=== PATIENT | male | born 1960 | race Caucasian/White ===

== ENCOUNTER 2016-05-11 16:43 | Emergency (ER) | payer MEDICAID ==
--- NOTE | 2016-05-11 18:08 | EDPHY ---
H & P Stated Complaint: constipation/n/v Time Seen by Provider: 05/11/16 17:15 HPI/ROS: CHIEF COMPLAINT: Constipation HISTORY OF PRESENT ILLNESS: The patient presents to the ED with complaints of constipation. The patient is on narcotics for chronic shoulder pain. He reports he has not had a bowel movement in 3 days. The patient denies fever or vomiting. The patient has not tried any [id number] laxatives. The patient does have a history of chronic intermittent abdominal pain which has been questioned to be secondary to can avoid hyperemesis. The patient denies any typical symptoms of his cyclic vomiting syndrome today. Additionally, the patient has no complaints of dysuria, sore throat or congestion. REVIEW OF SYSTEMS: A comprehensive 10 point review of systems is otherwise negative aside from elements mentioned in the history of present illness. Source: Patient Exam Limitations: No limitations - Personal History Current Tetanus/Diphtheria Vaccine: Yes - Medical/Surgical History Hx Asthma: Yes Hx Chronic Respiratory Disease: No Hx Diabetes: Yes Hx Cardiac Disease: Yes Hx Renal Disease: Yes Hx Cirrhosis: No Hx Alcoholism: No Hx HIV/AIDS: No Hx Splenectomy or Spleen Trauma: No Other PMH: htn, shoulder pain, borderline diabeties, depression, anxiety, idopathic pancreatitis; chronic marijuana use; ARF-2011-On HD x 3-4 days - Social History Smoking Status: Current every day smoker - Physical Exam Exam: General Appearance: Alert, no distress Eyes: Pupils equal and round no pallor or injection ENT, Mouth: Mucous membranes moist Respiratory: There are no retractions, lungs are clear to auscultation Cardiovascular: Regular rate and rhythm Gastrointestinal: Abdomen is soft and nontender, no masses, bowel sounds normal Neurological: A&O, normal motor function, normal sensory exam, normal cranial nerves Skin: Warm and dry, no rashes Musculoskeletal: Neck is supple nontender Extremities: symmetrical, full range of motion Constitutional: Initial Vital Signs Temperature (C) 37.2 C 05/11/16 16:51 Heart Rate 86 05/11/16 16:51 Respiratory Rate 22 H 05/11/16 16:51 Blood Pressure 165/101 H 05/11/16 16:51 O2 Sat (%) 100 05/11/16 16:51 O2 Delivery Mode Room Air Allergies/Adverse Reactions: No Known Allergies Allergy (Verified 05/11/16 16:50) Home Medications: Medication Instructions Recorded Lisinopril 05/11/16 oxyCODONE HCL 05/11/16 Medical Decision Making ED Course/Re-evaluation: The patient was given a enema in the emergency department and was able to have a bowel movement. He will be discharged home with a prescription for magnesium citrate. Additionally the patient is given a prescription for Zofran. He is instructed to return to the ED for markedly worsening pain or other concerns. Differential Diagnosis: Differential diagnosis considered includes constipation, obstruction, obstipation, chronic abdominal pain - Data Points Medications Given: Discontinued Medications Sodium Chloride (Ns) 1,000 mls @ 0 mls/hr IV ONCE ONE PRN Reason: Wide Open Stop: 05/11/16 18:10 Last Admin: 05/11/16 18:34 Dose: Not Given Departure - Departure Disposition: Home, Routine, Self-Care Clinical Impression: Constipation Condition: Good Instructions: Constipation (ED) Additional Instructions: 1. Zofran as needed for nausea. 2. Magnesium citrate as needed for constipation. 3. I recommend taking a stool softener such as Colace while using narcotics. 4. Return to the ED for severe abdominal pain, vomiting or other concerns.
[2016-05-11] MEDS ORDERED: NS 1,000 ML IV ONE (18:09)
[2016-05-11] MEDS ORDERED: MAGNESIUM CITRATE 300 ML BOTTLE ONE (19:46)
[2016-05-11] MEDS ORDERED: MAGNESIUM CITRATE 300 ML BOTTLE PO ONE (20:04)
[2016-05-11] MEDS ORDERED: ONDANSETRON 4MG PREPACK#2 BTL TAKEHOME ONE (20:29)
[2016-05-11] MEDS ORDERED: ONDANSETRON DISINTEGRATING 4 MG TAB PO ONE (20:32)
[2016-05-11 20:40] VITALS: BP 96/61; PULSE 91; RESP 18; TEMP 98.2; O2SAT 96
== END 2016-05-11 20:45 | disposition home or self-care (01) ==
DX: K59.00 Constipation, unspecified (principal); F17.200 Nicotine dependence, unspecified, uncomplicated; I10 Essential (primary) hypertension; J45.909 Unspecified asthma, uncomplicated

== ENCOUNTER 2016-05-25 17:28 | Emergency (ER) | payer MEDICAID ==
[2016-05-25 17:35] VITALS: RESP 20; O2SAT 94
--- NOTE | 2016-05-25 17:52 | EDPHY ---
HPI/HX/ROS/PE/MDM Narrative: CHIEF COMPLAINT: Fall, shoulder pain, rib pain HPI: The patient is a 56 y/o male complaining of left shoulder pain and rib pain secondary to a slip and fall while hiking 2 hours ago. He did not strike his head, neck, or back, and denies other injuries from the fall. No weakness or paresthesias. He has a history of chronic shoulder pain for which he uses narcotics. This is his 12th visit in the last year for various complaints. He was most recently seen 2 weeks ago for constipation secondary to opioid use. REVIEW OF SYSTEMS: Aside from elements discussed in the HPI, a comprehensive 10-point review of systems was reviewed and is negative. PMH: Hypertension, chronic shoulder pain, diabetes, depression, anxiety, idiopathic pancreatitis, ARF SOCIAL HISTORY: Chronic marijuana use PHYSICAL EXAM: General:Patient is alert, in no acute distress. ENT:Eyes are normal to inspection. ENT inspection normal. Neck: Normal inspection. Full range of motion. Respiratory:No respiratory distress. Breath sounds normal bilaterally. Cardiovascular: Regular rate and rhythm. Strong peripheral pulses. Normal cap refill. Abdomen:The abdomen is nontender to palpation. There are no peritoneal signs. There are normal bowel sounds. Back: Normal to inspection. No tenderness to palpation. Skin: Normal color. No rash. Warm and dry. Extremities: Tenderness to left lateral shoulder without step offs or ecchymosis. Normal appearance. Full range of motion. Neuro: Oriented x3. Normal motor function. Normal sensory function. ED Course: Study: Left rib series x-rays Indication: Rib pain, fall Results: Rib x-ray was obtained. The results of the study are 1. No definite acute left rib fracture. 2. Left calcified granulomata. 3. No pneumothorax. The study was read by the radiologist, Dr. Olmos. I viewed the images myself on the PACS system. Study: Left shoulder x-ray Indication: Rib pain, fall Results: Shoulder x-ray was obtained. The results of the study are nothing acute. The study was read by the radiologist, Dr. [place]. I viewed the images myself on the PACS system. I discussed imaging results with the patient. He will be discharged with standard shoulder strain and rib contusion instructions. He's been referred to his PCP for follow up. He agrees with plan. Return precautions given. General Time Seen by Provider: 05/25/16 17:43 Initial Vital Signs: Initial Vital Signs Temperature (C) 36.5 C 05/25/16 17:30 Heart Rate 80 05/25/16 17:30 Respiratory Rate 20 05/25/16 17:30 Blood Pressure 134/86 H 05/25/16 17:30 O2 Sat (%) 94 05/25/16 17:30 O2 Delivery Mode Room Air Allergies/Adverse Reactions: No Known Allergies Allergy (Verified 05/25/16 17:36) Home Medications: Medication Instructions Recorded ASPIRIN 05/25/16 Abilify 05/25/16 Atorvastatin Calcium 05/25/16 Cyclobenzaprine 05/25/16 Diclofenac Sodium 05/25/16 HALOPERIDOL 05/25/16 ISOSORBIDE DINITRATE 05/25/16 Lisinopril 05/25/16 Metformin HCl 05/25/16 Naproxen 05/25/16 Omeprazole 05/25/16 Ondansetron 05/25/16 Oxycodone HCl 05/25/16 Sertraline HCl 05/25/16 traZODone 05/25/16 Departure - Departure Disposition: Home, Routine, Self-Care Clinical Impression: Sprain of left shoulder, Contusion of rib on left side Condition: Good Instructions: Shoulder Sprain (ED), Rib Contusion (ED) Additional Instructions: 1. Rest. Apply ice to sore areas. Take 600mg ibuprofen every 6-8 hours as needed for pain for the next 5-7 days. 2. Follow up with your primary care provider for symptoms not improved over the next week. Referrals: [place],. [Primary Care Provider] - As per Instructions [facility] [Outside] - As per Instructions Report Scribed for: Joshua Brown Report Scribed by: Shireen Stock Date of Report: 05/25/16 Time of Report: 17:53 Physician Review and Approval Statement: Portions of this note were transcribed by an ED scribe. I personally performed the history, physical exam, and medical decision making; and confirm the accuracy of the information in the transcribed note.
--- NOTE | 2016-05-25 18:35 | DX ---
Left Shoulder , 3 Views History: Pain post trauma. Fall hiking. Comparison: August 17, 2015 Findings: There is an old solidly healed fracture deformity of the mid left clavicular shaft associat ed with what appears to be prior orthopedic decompressive surgery of the left rotator cuff. The humer al head is well rounded and normally located. No fracture or dislocation is identified. Incidentally noted are calcifications in the left hilum consistent with old granulomatous disease. Impression: Nothing acute identified.
--- NOTE | 2016-05-25 18:47 | DX ---
Chest and Left Ribs, Three Views May 25, 2016 HISTORY: Left rib pain. FINDINGS: Cardiac silhouette within normal range. No pneumonia, pleural effusion, or pneumothorax. Multiple calcified granulomata in the left hilum. Left ribs demonstrate no definite fracture. No clavicle fracture. No destructive osseous lesions. BB overlies the region of the left 7th/8th rib. IMPRESSIONS 1. No definite acute left rib fracture. 2. Left calcified granulomata. 3. No pneumothorax.
[2016-05-25] MEDS ORDERED: IBUPROFEN 600 MG TAB PO ONE (18:55)
[2016-05-25 19:04] VITALS: BP 128/80; PULSE 82; TEMP 97.5
== END 2016-05-25 19:04 | disposition home or self-care (01) ==
DX: S43.402A Unspecified sprain of left shoulder joint, initial encounter (principal); S20.20XA Contusion of thorax, unspecified, initial encounter; I10 Essential (primary) hypertension; E11.9 Type 2 diabetes mellitus without complications; W01.0XXA Fall on same level from slipping, tripping and stumbling without subsequent striking against object, initial encounter; Y93.01 Activity, walking, marching and hiking

== ENCOUNTER 2016-06-13 07:34 | Emergency (ER) | payer MEDICAID ==
[2016-06-13] MEDS ORDERED: PROMETHAZINE HCL 25 MG/ML INJ IVP ONE (08:14)
[2016-06-13] MEDS ORDERED: NS 1,000 ML IV ONE (08:14)
[2016-06-13] MEDS ORDERED: HALOPERIDOL LACT 5 MG/ML INJ IVP ONE (08:15)
--- NOTE | 2016-06-13 08:18 | EDPHY ---
H & P Stated Complaint: cyclical vomiting Time Seen by Provider: 06/13/16 08:09 HPI/ROS: CHIEF COMPLAINT: Cyclic vomiting HISTORY OF PRESENT ILLNESS: The patient is a 56-year-old man with a history of cyclic vomiting, cannabis hyperemesis syndrome, hypertension and diabetes as well as chronic shoulder pain and opiate dependency who comes to the emergency department states that he began throwing up at midnight. He states that his stomach is "being torn up". He states that this is exactly similar to previous episodes of cyclic vomiting. He has not had a fever. He has not had diarrhea. No history of abdominal surgeries. 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 REVIEW OF SYSTEMS: Constitutional: denies: chills, fever, recent illness, recent injury EENTM: denies: blurred vision, double vision, nose congestion Respiratory: denies: cough, shortness of breath Cardiac: denies: chest pain, irregular heart rate, lightheadedness, palpitations Gastrointestinal/Abdominal: See HPI Genitourinary: denies: dysuria, frequency, hematuria, pain Musculoskeletal: denies: joint pain, muscle pain Skin: denies: lesions, rash, jaundice, bruising Neurological: denies: headache, numbness, paresthesia, tingling, dizziness, weakness Hematologic/Lymphatic: denies: blood clots, easy bleeding, easy bruising Immunologic/allergic: denies: HIV/AIDS, transplant EXAM: GENERAL: Well-appearing, well-nourished and in no acute distress. HEAD: Atraumatic, normocephalic. EYES: Pupils equal round and reactive to light, extraocular movements intact, sclera anicteric, conjunctiva are normal. ENT: TMs normal, nares patent, oropharynx clear without exudates. Moist mucous membranes. NECK: Normal range of motion, supple without lymphadenopathy or JVD. LUNGS: Breath sounds clear to auscultation bilaterally and equal. No wheezes rales or rhonchi. HEART: Regular rate and rhythm without murmurs, rubs or gallops. ABDOMEN: Soft, nontender, normoactive bowel sounds. No guarding, no rebound. No masses appreciated. BACK: No CVA tenderness, no spinal tenderness, step-offs or deformities EXTREMITIES: Normal range of motion, no pitting or edema. No clubbing or cyanosis. NEUROLOGICAL: Cranial nerves II through XII grossly intact. Normal speech, normal gait. 5/5 strength, normal movement in all extremities, normal sensation PSYCH: Normal mood, normal affect. SKIN: Warm, dry, normal turgor, no visible rashes or lesions. Source: Patient, Old records Exam Limitations: No limitations - Personal History Current Tetanus/Diphtheria Vaccine: Unsure - Medical/Surgical History Hx Asthma: Yes Hx Chronic Respiratory Disease: No Hx Diabetes: Yes Hx Cardiac Disease: Yes Hx Renal Disease: Yes Hx Cirrhosis: No Hx Alcoholism: No Hx HIV/AIDS: No Hx Splenectomy or Spleen Trauma: No Other PMH: htn, shoulder pain, borderline diabeties, depression, anxiety, idopathic pancreatitis; chronic marijuana use; -2011-On HD x 3-4 days - Family History Significant Family History: No pertinent family hx - Social History Smoking Status: Former smoker Alcohol Use: Occasionally Drug Use: Marijuana Constitutional: Initial Vital Signs Temperature (C) 36.7 C 06/13/16 07:35 Heart Rate 73 06/13/16 07:35 Respiratory Rate 24 H 06/13/16 07:35 Blood Pressure 156/90 H 06/13/16 07:35 O2 Sat (%) 100 06/13/16 07:35 O2 Delivery Mode Room Air Allergies/Adverse Reactions: No Known Allergies Allergy (Verified 06/13/16 07:35) Home Medications: Medication Instructions Recorded ASPIRIN 05/25/16 Abilify 05/25/16 Atorvastatin Calcium 05/25/16 Cyclobenzaprine 05/25/16 Diclofenac Sodium 05/25/16 HALOPERIDOL 05/25/16 ISOSORBIDE DINITRATE 05/25/16 Lisinopril 05/25/16 Metformin HCl 05/25/16 Naproxen 05/25/16 Omeprazole 05/25/16 Ondansetron 05/25/16 Oxycodone HCl 05/25/16 Sertraline HCl 05/25/16 traZODone 05/25/16 Promethazine HCl [Phenergan 25mg 25 mg MA Q4-6PRN PRN #10 suppr 06/13/16 supp (RX)] Medical Decision Making ED Course/Re-evaluation: 9:20 a.m. the patient is feeling much better. He is sleeping and requested lights off. Abdominal exam remains benign. 10:00 a.m. the patient is feeling much better and is asking to go home. I will prescribe him Phenergan to take if needed. He understands and agrees with this plan. Additional verbal discharge instructions given. Differential Diagnosis: Partial list of the Differential diagnosis considered include but were not limited to; cyclic vomiting, cannabis hyperemesis, gastroenteritis, dehydration and although unlikely based on the history and physical exam, I also considered appendicitis, biliary disease, obstruction, ischemia. I discussed these differential diagnoses and the plan with the patient as well as the usual and expected course. The patient understands that the diagnosis is provisional and that in medicine we are not always correct and that further workup is often warranted. Usual and customary warnings were given. All of the patient's questions were answered. The patient was instructed to return to the emergency department should the symptoms at all worsen or return, otherwise to followup with the physician as we discussed. - Data Points Medications Given: Discontinued Medications Haloperidol Lactate (Haldol Injection) 5 mg IVP EDNOW ONE Stop: 06/13/16 08:16 Last Admin: 06/13/16 08:27 Dose: 5 mg Sodium Chloride (Ns) 1,000 mls @ 0 mls/hr IV ONCE ONE PRN Reason: Wide Open Stop: 06/13/16 08:15 Last Admin: 06/13/16 08:20 Dose: 1,000 mls Promethazine HCl (Phenergan) 12.5 mg IVP EDNOW ONE Stop: 06/13/16 08:15 Last Admin: 06/13/16 08:27 Dose: 12.5 mg Departure - Departure Disposition: Home, Routine, Self-Care Clinical Impression: Nausea & vomiting Qualifiers: Vomiting type: cyclical vomiting Vomiting Intractability: non-intractable Qualified Code(s): G43.A0 - Cyclical vomiting, not intractable Condition: Fair Instructions: Acute Nausea and Vomiting (ED) Referrals: NONE *PRIMARY CARE P,. [Primary Care Provider] - As per Instructions Rupal Hinkle MD [Medical Doctor] - As per Instructions Prescriptions: Promethazine HCl [Phenergan 25mg supp (RX)] 25 mg MA Q4-6PRN PRN #10 suppr PRN Reason: Headache
[2016-06-13 10:07] VITALS: BP 148/67; PULSE 71; RESP 20; TEMP 98.6; O2SAT 94
== END 2016-06-13 10:11 | disposition home or self-care (01) ==
DX: G43.A0 Cyclical vomiting, in migraine, not intractable (principal); J45.909 Unspecified asthma, uncomplicated; I10 Essential (primary) hypertension; Z79.82 Long term (current) use of aspirin; Z87.891 Personal history of nicotine dependence
CPT/HCPCS: 96374; J2550

== ENCOUNTER 2016-07-14 05:45 | Emergency (ER) | payer MEDICAID ==
[2016-07-14 05:54] VITALS: RESP 16
[2016-07-14] MEDS ORDERED: HALOPERIDOL LACT 5 MG/ML INJ ONE (06:04)
[2016-07-14] MEDS ORDERED: HALOPERIDOL LACT 5 MG/ML INJ IVP ONE ×2 (06:10→06:54)
[2016-07-14] MEDS ORDERED: NS 1,000 ML IV ONE (06:10)
[2016-07-14 06:43] LABS: % IMMATURE GRANULYOCYTES 0.4 % (0.0-1.1); ABSOLUTE IMMATURE GRANULOCYTES 0.05 10^3/uL (0.00-0.10); ADD DIFF? NO; ADD MORPH? NO; ADD SCAN? NO; ATYPICAL LYMPHOCYTE FLAG 10 (0-99); FRAGMENT RBC FLAG 0 (0-99); HEMATOCRIT 50.9 % (40.0-51.0); HEMOGLOBIN 17.7 g/dL (13.7-17.5); LEFT SHIFT FLG 0 (0-99); LIPEMIA HEMOLYSIS FLAG 90 (0-99); MEAN CELL HEMOGLOBIN 30.6 pg (27.9-34.1); MEAN CELL HEMOGLOBIN CONCENTR. 34.8 g/dL (32.4-36.7); MEAN CELL VOLUME 88.1 fL (81.5-99.8); MEAN PLATELET VOLUME 10.1 fL (8.7-11.7); PLATELET CLUMPS FLAG 20 (0-99); PLATELET COUNT 263 10^3/uL (150-400); RED BLOOD CELL COUNT 5.78 10^6/uL (4.40-6.38); RED CELL DISTRIBUTION WIDTH 12.6 % (11.5-15.2)
[2016-07-14 06:48] LABS: ALANINE AMINOTRANSFERASE 35 IU/L (21-72); ALBUMIN 5.3 g/dL (3.5-5.0); ALKALINE PHOSPHATASE 96 IU/L (38-126); ANION GAP 16 mEq/L (8-16); ASPARTATE AMINOTRANSFERASE 31 IU/L (17-59); BILIRUBIN,TOTAL 1.1 mg/dL (0.1-1.4); BILIRUBIN-CONJUGATED 0.4 mg/dL (0.0-0.5); BILIRUBIN-UNCONJUGATED 0.7 mg/dL (0.0-1.1); CALCIUM 10.2 mg/dL (8.5-10.4); CARBON DIOXIDE 26 mEq/l (22-31); CHLORIDE 100 mEq/L (97-110); CREATININE 1.1 mg/dL (0.7-1.3); GLOMERULAR FILTRATION RATE > 60; GLUCOSE 105 mg/dL (70-100); POTASSIUM 3.8 mEq/L (3.5-5.2); SODIUM 142 mEq/L (134-144); TOTAL PROTEIN 8.9 g/dL (6.3-8.2)
[2016-07-14] MEDS ORDERED: PROMETHAZINE HCL 25 MG TAB PO ONE (06:54)
--- NOTE | 2016-07-14 07:25 | EDPHY ---
H & P Stated Complaint: n/v, abd pain Time Seen by Provider: 07/14/16 06:14 HPI/ROS: HPI The patient presents with abdominal pain, nausea and vomiting which began last night at approximately 8:00 p.m.. He has vomited 3 times, it is been nonbloody and nonbilious. This is associated with diffuse and crampy abdominal pain which is somewhat achy in nature. This has been intermittent. He has not tried to eat or drink anything since the pain started. He has not taken any medications to treat his symptoms. He says he has not used marijuana in the last 2 weeks. He says this feels similar to his prior episodes, was last in the emergency room about 1 month ago and improved with Haldol and Phenergan. REVIEW OF SYSTEMS Constitutional: No fever, no chills. Eyes: No discharge. ENT: No sore throat. Cardiovascular: No chest pain, no palpitations. Respiratory: No cough, no shortness of breath. Gastrointestinal: See HPI Genitourinary: No hematuria. Musculoskeletal: No back pain. Skin: No rashes. Neurological: No headache. PMHx: Cyclic vomiting syndrome, history of canabanoid hyperemesis syndrome, followed by Dr. Maki of [facility] Hx: History of marijuana use PHYSICAL General Appearance: Alert, somewhat uncomfortable appearing Eyes: Pupils equal and round no pallor or injection ENT, Mouth: Mucous membranes dry Respiratory: There are no retractions, lungs are clear to auscultation Cardiovascular: Regular rate and rhythm Gastrointestinal: Abdomen is soft and non-tender, no masses, bowel sounds normal Neurological: A&O, moves all extremities Skin: Warm and dry, no rashes Musculoskeletal: Neck is supple non tender Extremities: symmetrical, full range of motion Psychiatric: Patient is oriented X 3, there is no agitation Source: Patient Exam Limitations: No limitations - Personal History Current Tetanus/Diphtheria Vaccine: Yes Current Tetanus Diphtheria and Acellular Pertussis (TDAP): Yes - Medical/Surgical History Hx Asthma: Yes Hx Chronic Respiratory Disease: No Hx Diabetes: Yes Hx Cardiac Disease: Yes Hx Renal Disease: Yes Hx Cirrhosis: No Hx Alcoholism: No Hx HIV/AIDS: No Hx Splenectomy or Spleen Trauma: No Other PMH: htn, shoulder pain, borderline diabeties, depression, anxiety, idopathic pancreatitis; chronic marijuana use; ARF-2012-On HD x 3-4 days - Social History Smoking Status: Former smoker Constitutional: Initial Vital Signs Temperature (C) 36.7 C 07/14/16 05:52 Heart Rate 75 07/14/16 05:52 Respiratory Rate 16 07/14/16 05:52 Blood Pressure 161/117 H 07/14/16 05:52 O2 Sat (%) 97 07/14/16 05:52 O2 Delivery Mode Room Air Allergies/Adverse Reactions: No Known Allergies Allergy (Verified 07/14/16 05:49) Home Medications: Medication Instructions Recorded ASPIRIN 05/25/16 Abilify 05/25/16 Atorvastatin Calcium 05/25/16 HALOPERIDOL 05/25/16 Lisinopril 05/25/16 Ondansetron 05/25/16 Oxycodone HCl 05/25/16 Sertraline HCl 05/25/16 traZODone 05/25/16 Promethazine HCl [Phenergan 25mg 25 mg AR Q4-6PRN PRN #10 suppr 06/13/16 supp (RX)] Medical Decision Making ED Course/Re-evaluation: 7:20 a.m.- The patient was re-evaluated by me. His vomiting seems to have improved, however he continues to complain of abdominal pain. His abdominal exam was repeated and is benign. I plan to write for additional medication, Toradol and famotidine will be administered. I anticipate that he will improve and be suitable for discharge at this time. The case will be signed out to Dr. Oakes in the case that the patient requires any additional care. Differential Diagnosis: This is a 56-year-old man with history of cyclic vomiting syndrome verses hyperemesis syndrome related to marijuana use who presents with acute onset of nausea, vomiting, abdominal pain, feeling typical of his prior episodes. Differential diagnosis includes cyclic vomiting, gastritis, gastroenteritis, hyperemesis syndrome. - Data Points Laboratory Results: Laboratory Results 07/14/16 06:03 07/14/16 06:03 07/14/16 07/14/16 06:03 06:03 WBC 12.09 10^3/uL H 10^3/uL (3.80-9.50) RBC 5.78 10^6/uL 10^6/uL (4.40-6.38) Hgb 17.7 g/dL H g/dL (13.7-17.5) Hct 50.9 % % (40.0-51.0) MCV 88.1 fL fL (81.5-99.8) MCH 30.6 pg pg (27.9-34.1) MCHC 34.8 g/dL g/dL (32.4-36.7) RDW 12.6 % % (11.5-15.2) Plt Count 263 10^3/uL 10^3/uL (150-400) MPV 10.1 fL fL (8.7-11.7) Neut % (Auto) 64.1 % % (39.3-74.2) Lymph % (Auto) 27.7 % % (15.0-45.0) [place] % (Auto) 6.9 % % (4.5-13.0) Eos % (Auto) 0.7 % % (0.6-7.6) Baso % (Auto) 0.2 % L % (0.3-1.7) Nucleat RBC Rel Count 0.0 % % (0.0-0.2) Absolute Neuts (auto) 7.75 10^3/uL H 10^3/uL (1.70-6.50) Absolute Lymphs (auto) 3.35 10^3/uL H 10^3/uL (1.00-3.00) Absolute Monos (auto) 0.83 10^3/uL H 10^3/uL (0.30-0.80) Absolute Eos (auto) 0.08 10^3/uL 10^3/uL (0.03-0.40) Absolute Basos (auto) 0.03 10^3/uL 10^3/uL (0.02-0.10) Absolute Nucleated RBC 0.00 10^3/uL 10^3/uL (0-0.01) Immature Gran % 0.4 % % (0.0-1.1) Immature Gran # 0.05 10^3/uL 10^3/uL (0.00-0.10) Sodium 142 mEq/L mEq/L (134-144) Potassium 3.8 mEq/L mEq/L (3.5-5.2) Chloride 100 mEq/L mEq/L (97-110) Carbon Dioxide 26 mEq/l mEq/l (22-31) Anion Gap 16 mEq/L mEq/L (8-16) BUN 15 mg/dL mg/dL (7-23) Creatinine 1.1 mg/dL mg/dL (0.7-1.3) Estimated GFR > 60 Glucose 105 mg/dL H mg/dL (70-100) Calcium 10.2 mg/dL mg/dL (8.5-10.4) Total Bilirubin 1.1 mg/dL mg/dL (0.1-1.4) Conjugated Bilirubin 0.4 mg/dL mg/dL (0.0-0.5) Unconjugated Bilirubin 0.7 mg/dL mg/dL (0.0-1.1) AST 31 IU/L IU/L (17-59) ALT 35 IU/L IU/L (21-72) Alkaline Phosphatase 96 IU/L IU/L (38-126) Total Protein 8.9 g/dL H g/dL (6.3-8.2) Albumin 5.3 g/dL H g/dL (3.5-5.0) Lipase 200.0 IU/L IU/L (23-300) Medications Given: Discontinued Medications Haloperidol Lactate (Haldol Injection) 2.5 mg IVP EDNOW ONE Stop: 07/14/16 06:11 Last Admin: 07/14/16 06:11 Dose: 2.5 mg Sodium Chloride (Ns) 1,000 mls @ 0 mls/hr IV ONCE ONE PRN Reason: Wide Open Stop: 07/14/16 06:11 Last Admin: 07/14/16 06:12 Dose: 1,000 mls Departure - Departure Disposition: Home, Routine, Self-Care Clinical Impression: Nausea & vomiting Qualifiers: Vomiting type: unspecified Vomiting Intractability: non-intractable Qualified Code(s): R11.2 - Nausea with vomiting, unspecified Abdominal pain Qualifiers: Abdominal location: generalized Qualified Code(s): R10.84 - Generalized abdominal pain Condition: Good Instructions: Acute Nausea and Vomiting (ED) Additional Instructions: Please follow-up with your regular doctor in the next few days. You should return to the emergency room if your pain is worse. Referrals: KALI OBREGON [Other] - As per Instructions
[2016-07-14] MEDS ORDERED: FAMOTIDINE 20 MG/NACL 50 ML IV ONE (07:26)
[2016-07-14] MEDS ORDERED: KETOROLAC 30 MG/1 ML SDV IVP ONE (07:26)
[2016-07-14 09:12] VITALS: BP 152/96; PULSE 88; TEMP 210; O2SAT 95
== END 2016-07-14 09:07 | disposition home or self-care (01) ==
DX: R11.2 Nausea with vomiting, unspecified (principal); R10.84 Generalized abdominal pain; I10 Essential (primary) hypertension; Z87.891 Personal history of nicotine dependence; Z79.82 Long term (current) use of aspirin
CPT/HCPCS: 96365; J1885

== ENCOUNTER 2016-09-14 06:55 | Emergency (ER) | payer MEDICAID ==
--- NOTE | 2016-09-14 07:02 | EDPHY ---
H & P Time Seen by Provider: 09/14/16 07:01 HPI/ROS: CHIEF COMPLAINT: Intractable vomiting HISTORY OF PRESENT ILLNESS: The patient presents to the ED with complaints of generalized abdominal pain and intractable vomiting. The patient has a history of cyclic vomiting syndrome. The patient states that he feels this is consistent with his typical acute exacerbation of this disease. The patient denies any hematemesis or melena. The patient denies fever. The patient did have surgery performed on his left shoulder approximately a week ago. The patient complains of moderate to severe symptoms. The patient is requesting an IV for rehydration. The patient has remote history of renal failure requiring hemodialysis in 2014. He has been off of dialysis since that time. The patient also has a history of idiopathic pancreatitis. REVIEW OF SYSTEMS: A comprehensive 10 point review of systems is otherwise negative aside from elements mentioned in the history of present illness. Source: Patient Exam Limitations: No limitations - Medical/Surgical History Hx Asthma: Yes Hx Chronic Respiratory Disease: No Hx Diabetes: Yes Hx Cardiac Disease: Yes Hx Renal Disease: Yes Hx Cirrhosis: No Hx Alcoholism: No Hx HIV/AIDS: No Hx Splenectomy or Spleen Trauma: No Other PMH: htn, shoulder pain, borderline diabeties, depression, anxiety, idopathic pancreatitis; chronic marijuana use; ARF-2011-On HD x 3-4 days - Social History Smoking Status: Former smoker - Physical Exam Exam: General Appearance: Alert, retching, moderate distress from vomiting Eyes: Pupils equal and round no pallor or injection ENT, Mouth: Mucous membranes moist Respiratory: There are no retractions, lungs are clear to auscultation Cardiovascular: Regular rate and rhythm Gastrointestinal: Mild generalized tenderness to palpation, no evidence of acute abdomen Neurological: A&O, normal motor function, normal sensory exam, normal cranial nerves Skin: Warm and dry, no rashes Musculoskeletal: Neck is supple nontender Extremities: symmetrical, full range of motion Constitutional: Initial Vital Signs Temperature (C) 36.9 C 09/14/16 06:59 Heart Rate 78 09/14/16 06:59 Respiratory Rate 18 09/14/16 06:59 Blood Pressure 173/100 H 09/14/16 06:59 O2 Sat (%) 99 09/14/16 06:59 O2 Delivery Mode Room Air Allergies/Adverse Reactions: No Known Allergies Allergy (Verified 09/14/16 07:03) Home Medications: Medication Instructions Recorded ASPIRIN 05/25/16 Abilify 05/25/16 Atorvastatin Calcium 05/25/16 HALOPERIDOL 05/25/16 Lisinopril 05/25/16 Ondansetron 05/25/16 Oxycodone HCl 05/25/16 Sertraline HCl 05/25/16 traZODone 05/25/16 Promethazine HCl [Phenergan 25mg 25 mg AZ Q4-6PRN PRN #10 suppr 06/13/16 supp (RX)] Medical Decision Making ED Course/Re-evaluation: I reviewed the patient's past medical records. The patient has a history of likely can avoid induced hyperemesis presents to the ED with a typical exacerbation of that disease. The patient did receive IV Haldol in the emergency department. The patient's laboratory studies demonstrate no evidence of a critical anemia, pancreatitis or metabolic derangement. The patient received an additional 1 L of normal saline for IV fluid rehydration in the setting of his vomiting. The patient was reassessed at 9:45 a.m. and is ambulatory. His vomiting has resolved. The patient will be discharged from the emergency department. Differential Diagnosis: Differential diagnosis considered includes cyclic vomiting syndrome, acute pancreatitis, hepatitis, dehydration, metabolic abnormality - Data Points Laboratory Results: Laboratory Results 09/14/16 07:20 09/14/16 07:20 09/14/16 09/14/16 09/14/16 07:20 07:20 07:17 WBC 12.09 10^3/uL H 10^3/uL (3.80-9.50) RBC 5.01 10^6/uL 10^6/uL (4.40-6.38) Hgb 15.5 g/dL g/dL (13.7-17.5) POC Hgb 15.3 gm/dL gm/dL (14.5-17.3) Hct 44.0 % % (40.0-51.0) POC Hct 45 % % (42.8-50.6) MCV 87.8 fL fL (81.5-99.8) MCH 30.9 pg pg (27.9-34.1) MCHC 35.2 g/dL g/dL (32.4-36.7) RDW 14.0 % % (11.5-15.2) Plt Count 250 10^3/uL 10^3/uL (150-400) MPV 10.0 fL fL (8.7-11.7) Neut % (Auto) 70.6 % % (39.3-74.2) Lymph % (Auto) 20.5 % % (15.0-45.0) [place] % (Auto) 5.8 % % (4.5-13.0) Eos % (Auto) 2.3 % % (0.6-7.6) Baso % (Auto) 0.2 % L % (0.3-1.7) Nucleat RBC Rel Count 0.0 % % (0.0-0.2) Absolute Neuts (auto) 8.53 10^3/uL H 10^3/uL (1.70-6.50) Absolute Lymphs (auto) 2.48 10^3/uL 10^3/uL (1.00-3.00) Absolute Monos (auto) 0.70 10^3/uL 10^3/uL (0.30-0.80) Absolute Eos (auto) 0.28 10^3/uL 10^3/uL (0.03-0.40) Absolute Basos (auto) 0.03 10^3/uL 10^3/uL (0.02-0.10) Absolute Nucleated RBC 0.00 10^3/uL 10^3/uL (0-0.01) Immature Gran % 0.6 % % (0.0-1.1) Immature Gran # 0.07 10^3/uL 10^3/uL (0.00-0.10) POC Sodium 142 mEq/L mEq/L (134-144) Sodium 140 mEq/L mEq/L (134-144) POC Potassium 3.2 mEq/L L mEq/L (3.3-5.0) Potassium 3.5 mEq/L mEq/L (3.5-5.2) POC Chloride 102 mEq/L mEq/L (96-108) Chloride 104 mEq/L mEq/L (97-110) Carbon Dioxide 24 mEq/l mEq/l (22-31) Anion Gap 12 mEq/L mEq/L (8-16) POC BUN 7 mg/dL mg/dL (7-23) BUN 9 mg/dL mg/dL (7-23) Creatinine 1.1 mg/dL mg/dL (0.7-1.3) POC Creatinine 1.2 mg/dL mg/dL (0.8-1.5) Estimated GFR > 60 Glucose 102 mg/dL H mg/dL (70-100) POC Glucose 105 mg/dL H mg/dL (70-100) Calcium 9.8 mg/dL mg/dL (8.5-10.4) Total Bilirubin 1.0 mg/dL mg/dL (0.1-1.4) Conjugated Bilirubin 0.4 mg/dL mg/dL (0.0-0.5) Unconjugated Bilirubin 0.6 mg/dL mg/dL (0.0-1.1) AST 23 IU/L IU/L (17-59) ALT 21 IU/L IU/L (21-72) Alkaline Phosphatase 93 IU/L IU/L (38-126) Total Protein 7.6 g/dL g/dL (6.3-8.2) Albumin 5.0 g/dL g/dL (3.5-5.0) Lipase 145.0 IU/L IU/L (23-300) Medications Given: Discontinued Medications Haloperidol Lactate (Haldol Injection) 2.5 mg IVP EDNOW ONE Stop: 09/14/16 07:20 Last Admin: 09/14/16 07:20 Dose: 2.5 mg Sodium Chloride (Ns) 1,000 mls @ 0 mls/hr IV ONCE ONE PRN Reason: Wide Open Stop: 09/14/16 07:20 Last Admin: 09/14/16 07:20 Dose: 1,000 mls Point of Care Test Results: 09/14/16 07:17 POC Sodium 142 POC Potassium 3.2 L POC Chloride 102 POC BUN 7 POC Creatinine 1.2 POC Glucose 105 H Departure - Departure Disposition: Home, Routine, Self-Care Clinical Impression: Cyclic vomiting syndrome Qualifiers: Vomiting Intractability: non-intractable Nausea presence: with nausea Qualified Code(s): G43.A0 - Cyclical vomiting, not intractable Condition: Good Instructions: Acute Nausea and Vomiting (ED) Additional Instructions: 1. Please return to the emergency department for worsening symptoms or other concerns. 2. Zofran as needed for nausea. 3. Please follow up with your primary care provider as needed. Referrals: KALI OBREGON [Other] - As per Instructions
[2016-09-14 07:03] VITALS: BP 173/100; RESP 18
[2016-09-14] MEDS ORDERED: NS 1,000 ML IV ONE (07:19)
[2016-09-14] MEDS ORDERED: HALOPERIDOL LACT 5 MG/ML INJ IVP ONE (07:19)
[2016-09-14 07:27] LABS: % IMMATURE GRANULYOCYTES 0.6 % (0.0-1.1); ABSOLUTE IMMATURE GRANULOCYTES 0.07 10^3/uL (0.00-0.10); ADD DIFF? NO; ADD MORPH? NO; ADD SCAN? NO; ATYPICAL LYMPHOCYTE FLAG 10 (0-99); FRAGMENT RBC FLAG 0 (0-99); HEMOGLOBIN 15.5 g/dL (13.7-17.5); LEFT SHIFT FLG 0 (0-99); LIPEMIA HEMOLYSIS FLAG 90 (0-99); MEAN CELL HEMOGLOBIN 30.9 pg (27.9-34.1); MEAN CELL HEMOGLOBIN CONCENTR. 35.2 g/dL (32.4-36.7); MEAN CELL VOLUME 87.8 fL (81.5-99.8); PLATELET CLUMPS FLAG 0 (0-99); PLATELET COUNT 250 10^3/uL (150-400); RED BLOOD CELL COUNT 5.01 10^6/uL (4.40-6.38)
[2016-09-14 07:58] LABS: ALANINE AMINOTRANSFERASE 21 IU/L (21-72); ALKALINE PHOSPHATASE 93 IU/L (38-126); ANION GAP 12 mEq/L (8-16); ASPARTATE AMINOTRANSFERASE 23 IU/L (17-59); BILIRUBIN-CONJUGATED 0.4 mg/dL (0.0-0.5); BILIRUBIN-UNCONJUGATED 0.6 mg/dL (0.0-1.1); CALCIUM 9.8 mg/dL (8.5-10.4); CARBON DIOXIDE 24 mEq/l (22-31); CHLORIDE 104 mEq/L (97-110); CREATININE 1.1 mg/dL (0.7-1.3); GLOMERULAR FILTRATION RATE > 60; GLUCOSE 102 mg/dL (70-100); POTASSIUM 3.5 mEq/L (3.5-5.2); SODIUM 140 mEq/L (134-144); TOTAL PROTEIN 7.6 g/dL (6.3-8.2)
[2016-09-14 10:02] VITALS: PULSE 79; TEMP 98.6; O2SAT 95
== END 2016-09-14 10:01 | disposition home or self-care (01) ==
DX: G43.A0 Cyclical vomiting, in migraine, not intractable (principal); J45.909 Unspecified asthma, uncomplicated; I10 Essential (primary) hypertension; Z79.82 Long term (current) use of aspirin; Z87.891 Personal history of nicotine dependence
CPT/HCPCS: 82947-QW; 96374

== ENCOUNTER 2016-12-25 03:51 | Emergency (ER) | payer MEDICAID ==
--- NOTE | 2016-12-25 04:05 | EDPHY ---
H & P Stated Complaint: c/o sweaty, N/V, since 1999. HPI/ROS: HPI CHIEF COMPLAINT: Abdominal pain, nausea, vomiting HISTORY OF PRESENT ILLNESS: This patient 56-year-old male, significant past medical history for pancreatitis, hypertension diabetes, he presents emergency room with nausea vomiting and abdominal pain. Patient tells me he has epigastric abdominal pain that goes across his abdomen. No chest pain or shortness of breath. States this started around 8:00 p.m.. Has been persistent all night. Currently 02/05. Burning. Associated nausea. He states he vomited multiple times prior to arrival. He states this feels similar to his previous pancreatitis. Denies hematemesis or diarrhea. Denies lower abdominal pain. Past Medical History: Hypertension, diabetes, chronic pancreatitis, nausea vomiting Past Surgical History: No recent surgery Social History: Denies use of drugs or alcohol. Homeless, lives additional. Family History: Noncontributory ROS REVIEW OF SYSTEMS: A comprehensive 10 point review of systems is otherwise negative aside from elements mentioned in the history of present illness. Exam Constitutional triage nursing summary reviewed, vital signs reviewed, awake/ alert. Eyes normal conjunctivae and sclera, EOMI, PERRLA. HENT normal inspection, atraumatic, moist mucus membranes, no epistaxis, neck supple/ no meningismus, no raccoon eyes. Respiratory clear to auscultation bilaterally, normal breath sounds, no respiratory distress, no wheezing. Cardiovascular rate normal, regular rhythm, no murmur, no edema, distal pulses normal. Gastrointestinal mild tender palpation epigastric region, no rebound, no guarding, normal bowel sounds, no distension, no pulsatile mass. Genitourinary no CVA tenderness. Musculoskeletal no midline vertebral tenderness, full range of motion, no calf swelling, no tenderness of extremities, no meningismus, good pulses, neurovascularly intact. Skin pink, warm, & dry, no rash, skin atraumatic. Neurologic awake, alert and oriented x 3, AAOx3, moves all 4 extremities equally, motor intact, sensory intact, CN II-XII intact, normal cerebellar, normal vision, normal speech. Psychiatric normal mood/affect. Heme/Lymph/Immune no lymphadenopathy. Differential diagnosis includes but is not limited to and in no particular order : Bowel obstruction, appendicitis, gallbladder disease, diverticulitis, colitis , enteritis, perforated viscus, gastritis, GERD, esophagitis, urinary tract infection, pyelonephritis, kidney stones Medical Decision Making: Plan for this patient IV establishment with IV fluid bolus 1 L normal saline, IV Zofran nausea, IV Dilaudid 0.5 mg for pain control. Check blood, including lipase. CT scan abdomen pelvis with IV contrast to help delineate his acute abdominal pain. EKG and troponin. Re-evaluation: 0519AM: CT scan of the abdomen pelvis with IV contrast has been reviewed. Negative for acute inflammatory process no free air no free fluid. Nothing to explain his severe epigastric abdominal pain. 0614AM: Reassessment at this time. He removed his own IV. He is ambulatory in the room. He is not vomiting. He tells me feels much better. He requesting discharge. His CT scan of his abdomen shows no acute inflammatory process. Blood work has been reviewed. No elevated lipase. Negative troponin. Nonischemic EKG. He denies chest pain shortness of breath. He is agreeable discharge. He does tell me feels better. P.o. challenge well. No vomiting here in the emergency room. He has been given return precautions he understands return emergency room if develops worsening abdominal pain fever vomiting. Source: Patient - Personal History Current Tetanus/Diphtheria Vaccine: Unsure Current Tetanus Diphtheria and Acellular Pertussis (TDAP): Unsure - Medical/Surgical History Hx Asthma: Yes Hx Chronic Respiratory Disease: No Hx Diabetes: Yes Hx Cardiac Disease: Yes Hx Renal Disease: Yes Hx Cirrhosis: No Hx Alcoholism: No Hx HIV/AIDS: No Hx Splenectomy or Spleen Trauma: No Other PMH: htn, shoulder pain, borderline diabeties, depression, anxiety, idopathic pancreatitis; chronic marijuana use; ARF-2011-On HD x 3-4 days - Social History Smoking Status: Former smoker Constitutional: Initial Vital Signs Temperature (C) 36.4 C 12/25/16 03:53 Heart Rate 90 12/25/16 03:53 Respiratory Rate 22 H 12/25/16 03:53 O2 Sat (%) 98 12/25/16 03:53 Allergies/Adverse Reactions: No Known Allergies Allergy (Verified 12/25/16 03:58) Home Medications: Medication Instructions Recorded ASPIRIN 05/25/16 Abilify 05/25/16 Atorvastatin Calcium 05/25/16 HALOPERIDOL 05/25/16 Lisinopril 05/25/16 Ondansetron 05/25/16 Oxycodone HCl 05/25/16 Sertraline HCl 05/25/16 traZODone 05/25/16 Promethazine HCl [Phenergan 25mg 25 mg NE Q4-6PRN PRN #10 suppr 06/13/16 supp (RX)] Ondansetron Odt [Zofran Odt] 4 mg PO Q4PRN PRN #20 tab 09/14/16 Medical Decision Making - Data Points Laboratory Results: Laboratory Results 12/25/16 04:10 12/25/16 04:10 12/25/16 12/25/16 04:10 04:10 WBC 13.02 10^3/uL H 10^3/uL (3.80-9.50) RBC 5.68 10^6/uL 10^6/uL (4.40-6.38) Hgb 17.7 g/dL H g/dL (13.7-17.5) Hct 49.6 % % (40.0-51.0) MCV 87.3 fL fL (81.5-99.8) MCH 31.2 pg pg (27.9-34.1) MCHC 35.7 g/dL g/dL (32.4-36.7) RDW 11.9 % % (11.5-15.2) Plt Count 263 10^3/uL 10^3/uL (150-400) MPV 10.5 fL fL (8.7-11.7) Neut % (Auto) 79.5 % H % (39.3-74.2) Lymph % (Auto) 16.8 % % (15.0-45.0) [place] % (Auto) 3.0 % L % (4.5-13.0) Eos % (Auto) 0.2 % L % (0.6-7.6) Baso % (Auto) 0.2 % L % (0.3-1.7) Nucleat RBC Rel Count 0.0 % % (0.0-0.2) Absolute Neuts (auto) 10.36 10^3/uL H 10^3/uL (1.70-6.50) Absolute Lymphs (auto) 2.19 10^3/uL 10^3/uL (1.00-3.00) Absolute Monos (auto) 0.39 10^3/uL 10^3/uL (0.30-0.80) Absolute Eos (auto) 0.02 10^3/uL L 10^3/uL (0.03-0.40) Absolute Basos (auto) 0.02 10^3/uL 10^3/uL (0.02-0.10) Absolute Nucleated RBC 0.00 10^3/uL 10^3/uL (0-0.01) Immature Gran % 0.3 % % (0.0-1.1) Immature Gran # 0.04 10^3/uL 10^3/uL (0.00-0.10) Sodium 140 mEq/L mEq/L (134-144) Potassium 4.2 mEq/L mEq/L (3.5-5.2) Chloride 100 mEq/L mEq/L (97-110) Carbon Dioxide 19 mEq/l L mEq/l (22-31) Anion Gap 21 mEq/L H mEq/L (8-16) BUN 15 mg/dL mg/dL (7-23) Creatinine 1.3 mg/dL mg/dL (0.7-1.3) Estimated GFR 57 Glucose 142 mg/dL H mg/dL (70-100) Calcium 10.8 mg/dL H mg/dL (8.5-10.4) Phosphorus 1.8 mg/dL L mg/dL (2.5-4.5) Total Bilirubin 0.9 mg/dL mg/dL (0.1-1.4) Conjugated Bilirubin 0.3 mg/dL mg/dL (0.0-0.5) Unconjugated Bilirubin 0.6 mg/dL mg/dL (0.0-1.1) AST 32 IU/L IU/L (17-59) ALT 33 IU/L IU/L (21-72) Alkaline Phosphatase 113 IU/L IU/L (38-126) Troponin I < 0.012 ng/mL ng/mL (0.000-0.034) Total Protein 9.2 g/dL H g/dL (6.3-8.2) Albumin 5.4 g/dL H g/dL (3.5-5.0) Lipase 117 IU/L IU/L (23-300) Medications Given: Discontinued Medications Hydromorphone HCl (Dilaudid) 0.5 mg IVP EDNOW ONE Stop: 12/25/16 04:11 Last Admin: 12/25/16 04:17 Dose: 0.5 mg Sodium Chloride (Ns) 1,000 mls @ 0 mls/hr IV EDNOW ONE; Wide Open PRN Reason: Protocol Stop: 12/25/16 04:11 Last Admin: 12/25/16 04:16 Dose: 1,000 mls Ondansetron HCl (Zofran) 4 mg IVP EDNOW ONE Stop: 12/25/16 04:11 Last Admin: 12/25/16 04:17 Dose: 4 mg Departure - Departure Disposition: Home, Routine, Self-Care Clinical Impression: Abdominal pain Qualifiers: Abdominal location: generalized Qualified Code(s): R10.84 - Generalized abdominal pain Condition: Good Instructions: Acute Abdominal Pain (ED) Additional Instructions: 1. [place] diet for the next 24-48 hours. 2. No spicy fatty greasy foods. 3. Return emergency room if develops worsening abdominal pain fever vomiting. Referrals: KALI OBREGON [Other] - As per Instructions
[2016-12-25] MEDS ORDERED: NS 1,000 ML IV ONE (04:10)
[2016-12-25] MEDS ORDERED: HYDROmorphONE/DILAUDID 1 MG/ML SYR IVP ONE (04:10)
[2016-12-25] MEDS ORDERED: ONDANSETRON 4 MG/2 ML VIAL IVP ONE (04:10)
[2016-12-25 04:28] LABS: % IMMATURE GRANULYOCYTES 0.3 % (0.0-1.1); ABSOLUTE IMMATURE GRANULOCYTES 0.04 10^3/uL (0.00-0.10); ADD DIFF? NO; ADD MORPH? NO; ADD SCAN? NO; ATYPICAL LYMPHOCYTE FLAG 0 (0-99); FRAGMENT RBC FLAG 0 (0-99); HEMATOCRIT 49.6 % (40.0-51.0); HEMOGLOBIN 17.7 g/dL (13.7-17.5); LEFT SHIFT FLG 0 (0-99); LIPEMIA HEMOLYSIS FLAG 90 (0-99); MEAN CELL HEMOGLOBIN 31.2 pg (27.9-34.1); MEAN CELL HEMOGLOBIN CONCENTR. 35.7 g/dL (32.4-36.7); MEAN CELL VOLUME 87.3 fL (81.5-99.8); MEAN PLATELET VOLUME 10.5 fL (8.7-11.7); PLATELET CLUMPS FLAG 20 (0-99); PLATELET COUNT 263 10^3/uL (150-400); RED BLOOD CELL COUNT 5.68 10^6/uL (4.40-6.38); RED CELL DISTRIBUTION WIDTH 11.9 % (11.5-15.2)
[2016-12-25 04:41] LABS: ALANINE AMINOTRANSFERASE 33 IU/L (21-72); ALBUMIN 5.4 g/dL (3.5-5.0); ALKALINE PHOSPHATASE 113 IU/L (38-126); ANION GAP 21 mEq/L (8-16); ASPARTATE AMINOTRANSFERASE 32 IU/L (17-59); BILIRUBIN,TOTAL 0.9 mg/dL (0.1-1.4); BILIRUBIN-CONJUGATED 0.3 mg/dL (0.0-0.5); BILIRUBIN-UNCONJUGATED 0.6 mg/dL (0.0-1.1); CALCIUM 10.8 mg/dL (8.5-10.4); CARBON DIOXIDE 19 mEq/l (22-31); CHLORIDE 100 mEq/L (97-110); CREATININE 1.3 mg/dL (0.7-1.3); GLOMERULAR FILTRATION RATE 57; GLUCOSE 142 mg/dL (70-100); POTASSIUM 4.2 mEq/L (3.5-5.2); SODIUM 140 mEq/L (134-144); TOTAL PROTEIN 9.2 g/dL (6.3-8.2)
[2016-12-25] MEDS ORDERED: IOPAMIDOL (ISOVUE-300) 100 ML BTL ONE (04:44)
[2016-12-25 04:53] LABS: TROPONIN I < 0.012 ng/mL (0.000-0.034)
--- NOTE | 2016-12-25 04:53 | CPEKG ---
Heart Rate: 81 RR Interval: 741 P-R Interval: 156 QRSD Interval: 96 QT Interval: 380 QTC Interval: 441 P [place]: 38 QRS [place]: -14 T Wave [place]: 73 EKG Severity - OTHERWISE NORMAL ECG - EKG Impression: SINUS ARRHYTHMIA, RATE 61-96 Electronically Signed By: Samuel Heart 25-Dec-2016 06:56:42
[2016-12-25 06:29] VITALS: BP 121/89; PULSE 82; RESP 18; TEMP 98.4; O2SAT 96
== END 2016-12-25 06:27 | disposition home or self-care (01) ==
DX: R10.84 Generalized abdominal pain (principal); I10 Essential (primary) hypertension; E11.9 Type 2 diabetes mellitus without complications; J45.909 Unspecified asthma, uncomplicated; E86.9 Volume depletion, unspecified; Z79.82 Long term (current) use of aspirin; Z87.891 Personal history of nicotine dependence
CPT/HCPCS: 96374; J1170; J2405; Q9967